=== PATIENT | female | born 1980 | race Native Hawaiian/Other Pacific Islander ===

== ENCOUNTER 2016-08-03 00:03 | Emergency (ER) | payer SELFPAY ==
[2016-08-03 03:36] LABS: Basophils % (Auto) 0.5 % (0.0-1.8); Eosinophils % (Auto) 2.5 % (0.0-4.3); Hemoglobin 12.5 gm/dl (10.1-14.3); Mean Corpuscular HGB Conc 34 % (30-34); Mean Corpuscular Hemoglobin 30 pg (28-32); Mean Corpuscular Volume 87 fl (79-97); Platelet Count 301 K/mm3 (140-440); Red Blood Count 4.24 M/mm3 (3.65-5.03); White Blood Count 8.9 K/mm3 (4.5-11.0)
[2016-08-03 05:13] LABS: Bacteria,Urine 1+ /HPF (Negative); Bilirubin,Urine NEG (Negative); Blood,Urine NEG (Negative); Ketones,Urine NEG (Negative); Leukocyte Esterase,Urine NEG (Negative); Mucus,Urine FEW /HPF; Nitrite,Urine NEG (Negative); Urobilinogen,Urine < 2.0 mg/dL (<2.0)
--- NOTE | 2016-08-03 05:13 | Ultrasound Report ---
FINAL REPORT PROCEDURE: US OB \T\lt; = 14 WEEKS FETUS TECHNIQUE: Real-time transabdominal and transvaginal sonography of the uterus, placenta, amniotic fluid, adnexa, and fetus was performed with image documentation. Measurements were obtained to determine age/size. M-mode Doppler was used to document heartbeat. CPT 70297 and 73368 HISTORY: Cramping. Nine weeks . COMPARISON: No prior studies are available for comparison. FINDINGS: CRL: 33.1 millimeters, which corresponds to a gestational age of: 10 weeks, 1 day. Yolk Sac: Normal. Embryonic Cardiac Activity: 165 beats per minute. Gestational Sac: Normal. Amniotic fluid: Normal. Cervix: Normal. Right Ovary: Not seen. Left Ovary: 3.3 x 2.1 x 2.1 centimeters. 2.1 centimeter cystic lesion. Uterus: 12 x 8.2 x 8.0 centimeters. Estimated delivery date: 02/28/2017. IMPRESSION: 1. Single live intrauterine gestation at approximately 10 weeks, 1 days. 2. EDC by US 02/28/2017 3. Complete anatomic survey at 18-20 weeks suggested. At this time presumed left ovarian cyst can be further evaluated.
--- NOTE | 2016-08-03 05:14 | Ultrasound Report ---
FINAL REPORT PROCEDURE: US OB \T\lt; = 14 WEEKS FETUS TECHNIQUE: Real-time transabdominal and transvaginal sonography of the uterus, placenta, amniotic fluid, adnexa, and fetus was performed with image documentation. Measurements were obtained to determine age/size. M-mode Doppler was used to document heartbeat. CPT 28361 and 10625 HISTORY: Cramping. Nine weeks . COMPARISON: No prior studies are available for comparison. FINDINGS: CRL: 33.1 millimeters, which corresponds to a gestational age of: 10 weeks, 1 day. Yolk Sac: Normal. Embryonic Cardiac Activity: 165 beats per minute. Gestational Sac: Normal. Amniotic fluid: Normal. Cervix: Normal. Right Ovary: Not seen. Left Ovary: 3.3 x 2.1 x 2.1 centimeters. 2.1 centimeter cystic lesion. Uterus: 12 x 8.2 x 8.0 centimeters. Estimated delivery date: 02/28/2017. IMPRESSION: 1. Single live intrauterine gestation at approximately 10 weeks, 1 days. 2. EDC by US 02/28/2017 3. Complete anatomic survey at 18-20 weeks suggested. At this time presumed left ovarian cyst can be further evaluated.
[2016-08-03] MEDS ORDERED: ZOFRAN ODT PO ONE (13:07)
--- NOTE | 2016-08-03 13:07 | Emergency Department Report ---
ED Abdominal Pain HPI - General Chief Complaint: Vaginal Bleeding Stated Complaint: 9 WKS W/LOWER ABD PAIN Time Seen by Provider: 08/03/16 12:58 Source: patient, family Mode of arrival: Ambulatory Limitations: No Limitations - History of Present Illness Initial Comments: Patient is a 36-year-old female with no past medical history, at approximately 10 weeks gestation who presents with lower abdominal cramping. She denies any vaginal fluid loss or vaginal bleeding. Associated nausea and vomiting. Patient takes no vitamins and is due to see her [employer] in 2 weeks. Otherwise of fevers, chills, headache, chest pain, shortness of breath, extremity pain or swelling, travel, or sick contacts. Severity scale (0 -10): 2 - Related Data Previous Rx's Medication Instructions Recorded Last Taken Type Ondansetron [Zofran Odt] 4 mg PO Q8HR PRN #12 tab.rapdis 08/03/16 Unknown Rx Allergies Allergy/AdvReac Type Severity Reaction Status Date / Time No Known Allergies Allergy Unverified 01/02/13 01:47 ED Review of Systems ROS: Stated complaint: 9 WKS W/LOWER ABD PAIN Other details as noted in HPI Comment: All other systems reviewed and negative ED Past Medical Hx - Past Medical History Previous Medical History?: Yes Additional medical history: 9 weeks - Social History Smoking Status: Unknown if ever smoked Substance Use Type: None - Medications Home Medications: Home Medications Medication Instructions Recorded Confirmed Last Taken Type Ondansetron [Zofran Odt] 4 mg PO Q8HR PRN #12 tab.rapdis 08/03/16 Unknown Rx ED Physical Exam - General Limitations: No Limitations General appearance: alert, in no apparent distress - Head Head exam: Present: atraumatic, normocephalic - Eye Eye exam: Present: normal appearance - ENT ENT exam: Present: mucous membranes moist - Neck Neck exam: Present: normal inspection - Respiratory Respiratory exam: Present: normal lung sounds bilaterally. Absent: respiratory distress - Cardiovascular Cardiovascular Exam: Present: regular rate, normal rhythm. Absent: systolic murmur, diastolic murmur, rubs, gallop - GI/Abdominal GI/Abdominal exam: Present: soft, normal bowel sounds - Extremities Exam Extremities exam: Present: normal inspection - Back Exam Back exam: Present: normal inspection - Neurological Exam Neurological exam: Present: alert, oriented X3 - Psychiatric Psychiatric exam: Present: normal affect, normal mood - Skin Skin exam: Present: warm, dry, intact, normal color. Absent: rash ED Course Vital Signs 08/03/16 08/03/16 02:57 12:28 Temperature 98.4 F 98.4 F Pulse Rate 84 96 H Respiratory 18 14 Rate Blood Pressure 169/94 Blood Pressure 130/83 [Right] O2 Sat by Pulse 99 96 Oximetry ED Medical Decision Making - Lab Data Result diagrams: 08/03/16 03:11 - Radiology Data Radiology results: report reviewed Transvaginal ultrasound, ultrasound: Single live intrauterine , heart rate 65 beats a minute, 10 weeks and 1 day results discussed with patient and her daughter at bedside, I instructed patient to have bhcg quant repeated in two days. Critical care attestation.: If time is entered above; I have spent that time in minutes in the direct care of this critically ill patient, excluding procedure time. ED Disposition Clinical Impression: Threatened , Nausea and vomiting during Disposition: DC-01 TO HOME OR SELFCARE Is pt being admited?: No Condition: Stable Instructions: Threatened Miscarriage (ED), Morning Sickness (ED) Prescriptions: Ondansetron [Zofran Odt] 4 mg PO Q8HR PRN #12 tab.rapdis PRN Reason: Nausea Referrals: PRIMARY CARE, [Primary Care Provider] - 3-5 Days
[2016-08-03 14:10] VITALS: BP 124/79
== END 2016-08-03 14:09 | disposition home or self-care (01) ==
LOC: ED 00:03
DX: O20.0 Threatened abortion (principal); R11.2 Nausea with vomiting, unspecified
CPT/HCPCS: 36415; 76801; 76817; 81001; 84702; 85025; 86850; 86900; 86901; Q0162